=== PATIENT | male | born 1960 | race Caucasian/White ===

== ENCOUNTER 2019-07-05 10:16 | Day surgery (SDC) | payer OTHER ==
[2019-07-05] MEDS ORDERED: PROPOFOL 500 MG/50 ML EMU IV ONE (11:45)
[2019-07-05 12:25] VITALS: O2SAT 100
[2019-07-05 12:45] VITALS: BP 105/72; PULSE 58; RESP 18; TEMP 97.6
== END 2019-07-05 12:57 | disposition home or self-care (01) | DRG 951 ==
LOC: SURG 10:16
PROVIDERS: ATTEND Surgery
DX: Z12.11 Encounter for screening for malignant neoplasm of colon (principal)
CPT/HCPCS: J2704